=== PATIENT | male | born 1995 | race Hispanic/Latino ===

== ENCOUNTER 2019-05-08 15:51 | Emergency (ER) | payer SELFPAY ==
[2019-05-08] MEDS ORDERED: oxyCODONE /ACETAMINOPHEN 5-325MG TAB PO ONE (15:59)
--- NOTE | 2019-05-08 15:59 | Event Note ---
ED Screening Note ED Screening Note: laceration to the right thumb with the saw that occurred just [employer] no PMHx no allergies to meds states his tetanus immunization is UTD This initial assessment/diagnostic orders/clinical plan/treatment(s) is/are subject to change based on patients health status, clinical progression and re- assessment by fellow clinical providers in the ED. Further treatment and workup at subsequent clinical providers discretion. Patient/guardian urged not to elope from the ED as their condition may be serious if not clinically assessed and managed. Initial orders include: XR of the right hand
[2019-05-08 16:13] VITALS: BP 129/90
== END 2019-05-08 16:10 | disposition left against medical advice (07) ==
LOC: ED 15:51
DX: S61.011A Laceration without foreign body of right thumb without damage to nail, initial encounter (principal); Z53.21 Procedure and treatment not carried out due to patient leaving prior to being seen by health care provider; X58.XXXA Exposure to other specified factors, initial encounter; Y93.89 Activity, other specified; Y92.488 Other paved roadways as the place of occurrence of the external cause; Y99.8 Other external cause status